=== PATIENT | male | born 1955 | race African-American/Black ===

== ENCOUNTER 2016-05-07 19:31 | Emergency (ER) | payer OTHER ==
[2016-05-07] MEDS ORDERED: ONDANSETRON 4 MG VIAL ONE (20:30)
[2016-05-07] MEDS ORDERED: KETOROLAC 30 MG/ML VIAL ONE (20:38)
[2016-05-07] MEDS ORDERED: SODIUM CHLORIDE 0.9% 1,000 ML ONE (21:27)
== END 2016-05-07 22:43 | disposition home or self-care (01) ==
LOC: ER 19:31
DX: J11.1 Influenza due to unidentified influenza virus with other respiratory manifestations (principal); J11.2 Influenza due to unidentified influenza virus with gastrointestinal manifestations; J45.909 Unspecified asthma, uncomplicated; Z87.891 Personal history of nicotine dependence
CPT/HCPCS: 36415; 71010; 80053; 81001; 82553; 83690; 84484; 85025; 87804; 87880; 93005; 96361; 96374; 96375; 99284; J1885; J2405

== ENCOUNTER 2016-05-16 21:40 | Emergency (ER) | payer OTHER ==
[2016-05-16] MEDS ORDERED: SODIUM CHLORIDE 0.9% 2,000 ML ONE (22:35)
== END 2016-05-17 01:33 | disposition home or self-care (01) ==
LOC: ER 21:40
DX: I95.2 Hypotension due to drugs (principal); J11.1 Influenza due to unidentified influenza virus with other respiratory manifestations
CPT/HCPCS: 36415; 71020; 80053; 81001; 83605; 83690; 85025; 87040; 87880; 96360; 96361